=== PATIENT | male | born 1960 | race Caucasian/White ===

== ENCOUNTER 2022-09-21 01:02 | Day surgery (SDC) | payer OTHER, SELFPAY ==
[2022-09-11 15:01] VITALS: BMI 24.5
--- NOTE | 2022-09-20 13:22 | PM.HPGS ---
History of Present Illness History of Present Illness Consent: Risks, benefits, and alternatives have been discussed and questions answered. Patient agrees to proceed with procedure. Chief complaint: neoplasm screening Narrative: Shiraz Navarrete is a 61 year old male Referred for colon cancer screening. Review of Systems Review of Systems: All systems reviewed & are unremarkable except as noted in HPI and below PMFSH Past Medical History Medical History RUFINA (obstructive sleep apnea) Surgical History Surgical History H/O colonoscopy H/O hernia repair Social History Social History Smoking status: Former smoker Tobacco type: cigarettes Substance use: current Substance use type: marijuana Last use: 2x weekly Living arrangements: with family Spiritual care concerns: No Meds Home Medications and Allergies Home Medications Medication Instructions Recorded Confirmed Type fluoxetine 20 mg tablet 20 mg PO DAILY 09/11/22 09/21/22 History pantoprazole 40 mg tablet,delayed 40 mg PO DAILY 09/11/22 09/21/22 History release Allergies Allergy/AdvReac Type Severity Reaction Status Date / Time No Known Allergies Allergy Verified 09/21/22 08:48 Exam Const: General: alert Orientation/consciousness: patient oriented x3 Resp: Auscultation: clear to auscultation bilaterally Cardio: Rate: regular rate Rhythm: regular rhythm GI: GI Palp: Yes Soft to palpation and No Tenderness to palpation present (GI) Neuro: General: patient oriented x3 Assessment and Plan Assessment and plan (1) Colon cancer screening: Code(s): Z12.11 - Encounter for screening for malignant neoplasm of colon Status: Acute Assessment and Plan: Colonoscopy with possible biopsy or polypectomy or cautery or injection of substances.
[2022-09-21 08:49] VITALS: BP 145/90; PULSE 72; RESP 18; TEMP 36.4; O2SAT 100
[2022-09-21] MEDS: LACTATED RINGERS 1,000 ML 150 ML IV CONT (08:53)
--- NOTE | 2022-09-21 09:14 | P.PNAN_ITS ---
Anes - Initial Pre Proc Eval Procedure: Operation Date: 09/21/22 10:00 Proposed Procedures p Screening Colonoscopy - Lamine Oneill MD Date/Time: 09/21/22 09:14 Surgeon: Lamine Oneill MD Pre Op Diagnosis: neoplasm screening Patient Data Age: 61 Gender: M Height: 1.83 m Weight: 77.8 kg Last Vital Signs Temp 36.4 C L 09/21/22 08:49 Pulse 72 09/21/22 08:49 Resp 18 09/21/22 08:49 BP 145/90 H 09/21/22 08:49 Pulse Ox 100 09/21/22 08:49 O2 Del Method Room Air 09/21/22 08:49 Allergies Allergy/AdvReac Type Severity Reaction Status Date / Time No Known Allergies Allergy Verified 09/21/22 08:48 Home Medications Medication Instructions Recorded Confirmed Type fluoxetine 20 mg tablet 20 mg PO DAILY 09/11/22 09/21/22 History pantoprazole 40 mg tablet,delayed 40 mg PO DAILY 09/11/22 09/21/22 History release Patient hx anesthesia problems: none Family hx anesthesia problems: none Results Review: All pre-operative results and documents have been reviewed as part of the pre- operative evaluation. [facility] Past Medical History Medical History (Updated 09/21/22 @ 09:15 by Nico Alanis MD) RUFINA (obstructive sleep apnea) Surgical History Surgical History (Updated 09/21/22 @ 09:15 by Nico Alanis MD) H/O colonoscopy H/O hernia repair Social History Social History Smoking status: Former smoker Tobacco type: cigarettes Substance use: current Substance use type: marijuana Last use: 2x weekly Living arrangements: with family Spiritual care concerns: No Anes - Eval Final PreProcedure Day of Procedure 09/21/22 09:14 Patient weight: normal Heart: regular rate and rhythm Lungs: clear to auscultation Airway: Mallampati scale class II, special considerations poor dentition and other (upper denture) Neurological: alert and oriented Last oral intake: >/= 8 hours ASA classification: III Emergent: no Anesthetic plan: proceed Anesthesia type and monitoring: general GIVS and standard monitoring Results Review: All pre-operative results and documents have been reviewed as part of the pre- operative evaluation. Informed Consent: The patient's anesthetic plan and its attendant risks and benefits were discussed with the patient/family/POA. Questions were solicited and answers provided to the satisfaction of the patient/family/POA.
[2022-09-21 10:35] VITALS: BP 98/65; PULSE 68; RESP 18; O2SAT 98
[2022-09-21 10:45] VITALS: BP 125/69; PULSE 65; RESP 20; O2SAT 100
[2022-09-21 10:55] VITALS: BP 145/90; PULSE 69; RESP 22; O2SAT 100
== END 2022-09-21 10:59 | disposition home or self-care (01) ==
PROVIDERS: PCP Internal Medicine; Visit Provider Internal Medicine Gastroenterology
PROC: 0DJD8ZZ Inspection of Lower Intestinal Tract, Via Natural or Artificial Opening Endoscopic (ICD-10-PCS; CPT 45378; principal; 2022-09-21 10:00)
DX: Z12.11 Encounter for screening for malignant neoplasm of colon (principal); K57.30 Diverticulosis of large intestine without perforation or abscess without bleeding; D12.8 Benign neoplasm of rectum; G47.33 Obstructive sleep apnea (adult) (pediatric); Z87.891 Personal history of nicotine dependence; F12.90 Cannabis use, unspecified, uncomplicated
CPT/HCPCS: 45385; 88305; J2704; J7120